=== PATIENT | female | born 1970 | race Caucasian/White ===

== ENCOUNTER 2017-12-23 05:30 | Day surgery (SDC) | payer BC ==
[~2017-12-23] VITALS: Ht 152.4 cm; Wt 65.2 kg
[~2017-12-23 05:30] MED LIST: NOHOMEMEDS; ST. JOSEPH ASPI81 MG PO
[2017-12-23 06:36] VITALS: BP 87/55
[2017-12-23 11:53] VITALS: BP 86/50
[2017-12-23 16:33] VITALS: BP 88/55
[2017-12-23 18:30] LABS: BASOPHIL (%) 0.1 % (0-1); EOSINOPHIL (%) 0 % (0-5); HEMATOCRIT 34.2 % (36.0-46.0); IMMATURE GRANULOCYTE (%) 0.4 % (0.0-0.7); LYMPHOCYTE (%) 5.9 % (15-42); LYMPHOCYTE COUNT 0.5 K/uL (1.0-2.8); MCH 31.2 PG (29.0-34.0); MCHC 34.2 G/DL (30.0-36.0); MCV 91.2 FL (83-99); MONOCYTE (%) 4.7 % (3-12); MONOCYTE COUNT 0.4 K/uL (0-0.8); NEUTROPHIL (%) 88.9 % (45-76); NEUTROPHIL COUNT 7.9 K/uL (1.8-6.4); PLATELET COUNT 190 K/uL (156-360); RBC DIS.WIDTH-CV 12.7 % (11.8-14.6); RBC DIS.WIDTH-SD 42.3 % (39-53); RED BLOOD COUNT 3.75 M/uL (3.80-5.20); WHITE BLOOD COUNT 8.9 K/uL (4.1-10.2)
[2017-12-23 18:32] LABS: HEMOGLOBIN 11.7 G/DL (11.9-15.5)
[2017-12-23 18:53] LABS: CHLORIDE 105 MEQ/L (99-109); CREATININE 0.8 MG/DL (0.6-1.3); GFR ESTIMATE (CALCULATED) > 59 mL/min/; GLUCOSE 150 mg/dL (70-99); POTASSIUM 4.1 MEQ/L (3.7-5.4); SODIUM 138 MEQ/L (136-147); UREA NITROGEN (BUN) 10 mg/dL (9-23)
[2017-12-23 19:36] VITALS: BP 92/51
[2017-12-23 23:19] VITALS: BP 90/58
[2017-12-24 03:44] VITALS: BP 83/46
[2017-12-24 06:43] LABS: BASOPHIL (%) 0.3 % (0-1); EOSINOPHIL (%) 1.8 % (0-5); EOSINOPHIL COUNT 0.2 K/uL (0-0.3); HEMATOCRIT 32.5 % (36.0-46.0); HEMOGLOBIN 10.9 G/DL (11.9-15.5); IMMATURE GRANULOCYTE (%) 0.4 % (0.0-0.7); LYMPHOCYTE (%) 15.2 % (15-42); LYMPHOCYTE COUNT 1.4 K/uL (1.0-2.8); MCH 31.1 PG (29.0-34.0); MCHC 33.5 G/DL (30.0-36.0); MCV 92.6 FL (83-99); MONOCYTE (%) 6.9 % (3-12); MONOCYTE COUNT 0.6 K/uL (0-0.8); NEUTROPHIL (%) 75.4 % (45-76); NEUTROPHIL COUNT 6.9 K/uL (1.8-6.4); PLATELET COUNT 176 K/uL (156-360); RBC DIS.WIDTH-CV 12.9 % (11.8-14.6); RBC DIS.WIDTH-SD 43.8 % (39-53); RED BLOOD COUNT 3.51 M/uL (3.80-5.20); WHITE BLOOD COUNT 9.1 K/uL (4.1-10.2)
[2017-12-24 07:09] LABS: CHLORIDE 107 MEQ/L (99-109); CREATININE 0.7 MG/DL (0.6-1.3); GFR ESTIMATE (CALCULATED) > 59 mL/min/; POTASSIUM 3.6 MEQ/L (3.7-5.4); SODIUM 143 MEQ/L (136-147); UREA NITROGEN (BUN) 9 mg/dL (9-23)
[2017-12-24 07:13] LABS: GLUCOSE 84 mg/dL (70-99)
[2017-12-24 08:30] VITALS: BP 101/59
== END 2017-12-24 09:23 | disposition home or self-care (01) ==
LOC: SDC 05:30 → 2SOUTH 09:45 → 2EAST 09:45 → ENRESERV 09:57 → 2EAST 12:15 → SDC 14:12 → 2EAST 12-24 09:23
PROVIDERS: Obstetrics & Gynecology Gynecology
DX: Z40.02 Encounter for prophylactic removal of ovary(s) (principal); Z15.09 Genetic susceptibility to other malignant neoplasm; Z15.02 Genetic susceptibility to malignant neoplasm of ovary; Z85.038 Personal history of other malignant neoplasm of large intestine; N73.6 Female pelvic peritoneal adhesions (postinfective); Z80.41 Family history of malignant neoplasm of ovary; Z80.0 Family history of malignant neoplasm of digestive organs; Z80.51 Family history of malignant neoplasm of kidney; E66.3 Overweight; Z68.28 Body mass index [BMI] 28.0-28.9, adult; Z82.49 Family history of ischemic heart disease and other diseases of the circulatory system; Z88.0 Allergy status to penicillin; Z90.710 Acquired absence of both cervix and uterus; Z90.79 Acquired absence of other genital organ(s); Z90.721 Acquired absence of ovaries, unilateral
CPT/HCPCS: 80048; 85025; 87086; 88305; G0378; J0131; J0690; J1100; J1170; J1644; J1885; J1940; J2250; J2405; J2710; J3010; J7120; J7643; Q0175; S0020